=== PATIENT | male | born 2000 | race African-American/Black ===

== ENCOUNTER 2021-09-28 12:35 | Emergency (ER) | payer MEDICAID ==
[~2021-09-28] VITALS: Ht 185.4 cm; Wt 91.0 kg
[2021-09-28] MEDS ORDERED: BACITRACIN ZINC OINT UDPKT TOP ONE (13:00)
[2021-09-28] MEDS ORDERED: SILVER SULFADIAZINE 1% CREAM 25GM TOP ONE (16:45)
[2021-09-28] MEDS ORDERED: SILV50CR31 TP (16:54)
[2021-09-28] MEDS ORDERED: IBUP-2029 MT (16:54)
[2021-09-28] MEDS ORDERED: CEPH500C2 MT (16:54)
[2021-09-28 17:06] VITALS: BP 135/75
== END 2021-09-28 17:00 | disposition home or self-care (01) ==
LOC: ER 12:35
DX: T22.20XA Burn of second degree of shoulder and upper limb, except wrist and hand, unspecified site, initial encounter (principal); X10.2XXA Contact with fats and cooking oils, initial encounter; Y93.89 Activity, other specified; Y92.018 Other place in single-family (private) house as the place of occurrence of the external cause
CPT/HCPCS: 16020; 99283